=== PATIENT | male | born 1990 | race Two or more races ===

== ENCOUNTER 2016-05-05 15:06 | Emergency (ER) | payer BC ==
[2016-05-05 15:29] VITALS: BP 150/85; PULSE 56; RESP 20; TEMP 98; O2SAT 97
--- NOTE | 2016-05-05 15:58 | UCPHY ---
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 He states that while lying in bed he began having chest pain and arm pain and hyperventilating. He had tingling in his lips. He is getting over a cold that he had last week. He has not had a fever. He rounds lungs distances daily never has chest pain associated with this exertion. His father recently . We eventually fell asleep after 2 hours and has not had symptoms since. He classifies them as moderate. REVIEW OF SYSTEMS: Constitutional: denies: chills, fever, recent illness, recent injury EENTM: denies: blurred vision, double vision, nose congestion Respiratory: denies: cough, shortness of breath Cardiac: denies: chest pain, irregular heart rate, lightheadedness, palpitations Gastrointestinal/Abdominal: See HPI Genitourinary: denies: dysuria, frequency, hematuria, pain Musculoskeletal: denies: joint pain, muscle pain Skin: denies: lesions, rash, jaundice, bruising Neurological: denies: headache, numbness, paresthesia, tingling, dizziness, weakness Hematologic/Lymphatic: denies: blood clots, easy bleeding, easy bruising Immunologic/allergic: denies: HIV/AIDS, transplant EXAM: GENERAL: Well-appearing, well-nourished and in no acute distress. HEAD: Atraumatic, normocephalic. EYES: Pupils equal round and reactive to light, extraocular movements intact, sclera anicteric, conjunctiva are normal. ENT: TMs normal, nares patent, oropharynx clear without exudates. Moist mucous membranes. NECK: Normal range of motion, supple without lymphadenopathy or JVD. LUNGS: Breath sounds clear to auscultation bilaterally and equal. No wheezes rales or rhonchi. HEART: Regular rate and rhythm without murmurs, rubs or gallops. ABDOMEN: Soft, nontender, normoactive bowel sounds. No guarding, no rebound. No masses appreciated. BACK: No CVA tenderness, no spinal tenderness, step-offs or deformities EXTREMITIES: Normal range of motion, no pitting or edema. No clubbing or cyanosis. NEUROLOGICAL: Cranial nerves II through XII grossly intact. Normal speech, normal gait. 5/5 strength, normal movement in all extremities, normal sensation PSYCH: Normal mood, normal affect. SKIN: Warm, dry, normal turgor, no visible rashes or lesions. Source: Patient Exam Limitations: No limitations - Personal History Current Tetanus Diphtheria and Acellular Pertussis (TDAP): Yes - Medical/Surgical History Hx Asthma: No Hx Chronic Respiratory Disease: No Hx Diabetes: No Hx Cardiac Disease: No Hx Renal Disease: No Hx Cirrhosis: No Other PMH: appy/ TA/ knee surg. - Family History Significant Family History: No pertinent family hx - Social History Smoking Status: Never smoked Alcohol Use: Sober Constitutional: Initial Vital Signs Temperature (C) 36.6 C 05/05/16 15:26 Heart Rate 56 L 05/05/16 15:26 Respiratory Rate 20 05/05/16 15:26 Blood Pressure 150/85 H 05/05/16 15:26 O2 Sat (%) 97 05/05/16 15:26 O2 Delivery Mode Room Air Allergies/Adverse Reactions: Penicillins Allergy (Verified 05/05/16 15:25) Home Medications: Medication Instructions Recorded LORazepam [Ativan 1 mg (RX)] 1 mg PO Q6-8PRN PRN #10 tab 05/05/16 Medical Decision Making - Diagnostics EKG Interpretation: An EKG obtained and was read and documented in trace view. Please see trace view for full reading and report. Sinus rhythm, diffuse ST elevation consistent with early repolarization and thin chest wall. Imaging: X-ray: chest x-ray was obtained. I viewed the images myself on the PACS system. My interpretation of the images is: negative for acute disease . The radiologist interpretation is negative. ED Course/Re-evaluation: The patient is currently asymptomatic. His EKG is consistent with a thin runner with early repolarization. His symptoms and presentation are much more consistent with anxiety. He has recently experienced that as of his father. Also he recently moved to [place] for his running and is alone here. After further discussion he decided he would like to have some lab work done to check his troponin. This would make him feel more confident. We discussed the test results. He is reassured. He declines further workup or testing. He is requesting a take-home of Ativan to help him in times of stress. Additional verbal discharge instructions given. We discussed indications for returning. Differential Diagnosis: Partial list of the Differential diagnosis considered include but were not limited to; anxiety, arrhythmia, acute coronary disease and although unlikely based on the history and physical exam, I also considered PE, pneumonia, dissection, aneurysm. I discussed these differential diagnoses and the plan with the patient as well as the usual and expected course. The patient understands that the diagnosis is provisional and that in medicine we are not always correct and that further workup is often warranted. Usual and customary warnings were given. All of the patient's questions were answered. The patient was instructed to return to the emergency department should the symptoms at all worsen or return, otherwise to followup with the physician as we discussed. - Data Points Laboratory Results: Laboratory Results 05/05/16 16:25 05/05/16 16:25 05/05/16 16:25 WBC 6.05 10^3/uL (3.80-9.50) RBC 5.00 10^6/uL (4.40-6.38) Hgb 15.2 g/dL (13.7-17.5) Hct 43.8 % (40.0-51.0) MCV 87.6 fL (81.5-99.8) MCH 30.4 pg (27.9-34.1) MCHC 34.7 g/dL (32.4-36.7) RDW 12.6 % (11.5-15.2) Plt Count 239 10^3/uL (150-400) MPV 10.9 fL (8.7-11.7) Neut % (Auto) 59.4 % (39.3-74.2) Lymph % (Auto) 29.6 % (15.0-45.0) [place] % (Auto) 8.8 % (4.5-13.0) Eos % (Auto) 1.2 % (0.6-7.6) Baso % (Auto) 0.7 % (0.3-1.7) Nucleat RBC Rel Count 0.0 % (0.0-0.2) Absolute Neuts (auto) 3.60 10^3/uL (1.70-6.50) Absolute Lymphs (auto) 1.79 10^3/uL (1.00-3.00) Absolute Monos (auto) 0.53 10^3/uL (0.30-0.80) Absolute Eos (auto) 0.07 10^3/uL (0.03-0.40) Absolute Basos (auto) 0.04 10^3/uL (0.02-0.10) Absolute Nucleated RBC 0.00 10^3/uL (0-0.01) Immature Gran % 0.3 % (0.0-1.1) Immature Gran # 0.02 10^3/uL (0.00-0.10) Sodium 138 mEq/L (134-144) Potassium 3.8 mEq/L (3.5-5.2) Chloride 102 mEq/L (97-110) Carbon Dioxide 25 mEq/l (22-31) Anion Gap 11 mEq/L (8-16) BUN 23 mg/dL (7-23) Creatinine 0.9 mg/dL (0.7-1.3) Estimated GFR > 60 Glucose 92 mg/dL (70-100) Calcium 9.6 mg/dL (8.5-10.4) Troponin I < 0.012 ng/mL (0-0.034) Medications Given: Discontinued Medications Lorazepam (Ativan 1 Mg Prepack#4) 1 btl TAKEHOME EDNOW ONE Stop: 05/05/16 17:23 Last Admin: 05/05/16 17:24 Dose: 1 btl Departure - Departure Disposition: Home, Routine, Self-Care Clinical Impression: Anxiety Condition: Fair Instructions: Stress (ED), Lorazepam (By mouth) Referrals: NONE *PRIMARY CARE P,. [Primary Care Provider] - As per Instructions Yazmin Miranda MD [Medical Doctor] - As per Instructions Prescriptions: LORazepam [Ativan 1 mg (RX)] 1 mg PO Q6-8PRN PRN #10 tab PRN Reason: *Anxiety/Agitation/Insomnia - PQRS PQRS Measurement: Not applicable
--- NOTE | 2016-05-05 16:04 | CPEKG ---
Heart Rate: 60 RR Interval: 1000 P-R Interval: 168 QRSD Interval: 98 QT Interval: 428 QTC Interval: 428 P [place]: 28 QRS [place]: 71 T Wave [place]: -6 EKG Severity - ABNORMAL ECG - EKG Impression: SINUS RHYTHM EKG Impression: PROBABLE LEFT VENTRICULAR HYPERTROPHY EKG Impression: BORDERLINE T ABNORMALITIES, INFERIOR LEADS EKG Impression: ST ELEV, PROBABLE NORMAL EARLY REPOL PATTERN Electronically Signed By: Edward Vargas 05-May-2016 16:11:10
[2016-05-05 16:43] LABS: % IMMATURE GRANULYOCYTES 0.3 % (0.0-1.1); ABSOLUTE IMMATURE GRANULOCYTES 0.02 10^3/uL (0.00-0.10); ADD DIFF? NO; ADD MORPH? NO; ADD SCAN? NO; ATYPICAL LYMPHOCYTE FLAG 10 (0-99); FRAGMENT RBC FLAG 0 (0-99); HEMATOCRIT 43.8 % (40.0-51.0); HEMOGLOBIN 15.2 g/dL (13.7-17.5); LEFT SHIFT FLG 0 (0-99); LIPEMIA HEMOLYSIS FLAG 90 (0-99); MEAN CELL HEMOGLOBIN 30.4 pg (27.9-34.1); MEAN CELL HEMOGLOBIN CONCENTR. 34.7 g/dL (32.4-36.7); MEAN CELL VOLUME 87.6 fL (81.5-99.8); MEAN PLATELET VOLUME 10.9 fL (8.7-11.7); PLATELET CLUMPS FLAG 0 (0-99); PLATELET COUNT 239 10^3/uL (150-400); RED CELL DISTRIBUTION WIDTH 12.6 % (11.5-15.2)
--- NOTE | 2016-05-05 16:44 | DX ---
PA and Lateral Chest - May 05, 2016 at 1633 hours Clinical Indications: Chest pain. Findings: The lungs are clear, and no masses are found. The heart and pulmonary vessels are normal. There are no pleural effusions and no pneumothorax. The bones are unremarkable for this age. Impression: Normal.
[2016-05-05 17:08] LABS: TROPONIN I < 0.012 ng/mL (0-0.034)
[2016-05-05 17:22] LABS: ANION GAP 11 mEq/L (8-16); CALCIUM 9.6 mg/dL (8.5-10.4); CARBON DIOXIDE 25 mEq/l (22-31); CHLORIDE 102 mEq/L (97-110); CREATININE 0.9 mg/dL (0.7-1.3); GLOMERULAR FILTRATION RATE > 60; GLUCOSE 92 mg/dL (70-100); POTASSIUM 3.8 mEq/L (3.5-5.2); SODIUM 138 mEq/L (134-144)
[2016-05-05] MEDS ORDERED: LORAZEPAM 1 MG PREPACK#4 BTL TAKEHOME ONE (17:22)
== END 2016-05-05 17:30 | disposition home or self-care (01) ==
LOC: CED 15:06
DX: F41.9 Anxiety disorder, unspecified (principal); R07.9 Chest pain, unspecified; M79.603 Pain in arm, unspecified
CPT/HCPCS: 71020-PO; 80048-PO; 84484-PO; 85025-PO; 93010-PO; 99205-PO; G0463-PO

== ENCOUNTER → 2017-09-20 | Outpatient (CLI) | payer OTHER | LOC: FIMAGING 07:56 | DX: M84.375A Stress fracture, left foot, initial encounter for fracture (principal); M76.72 Peroneal tendinitis, left leg; M65.872 Other synovitis and tenosynovitis, left ankle and foot ==